=== PATIENT | female | born 1975 | race Caucasian/White ===

== ENCOUNTER 2018-07-03 11:17 | Outpatient (CLI) | payer OTHER ==
[2018-07-03] MEDS ORDERED: MONT10TA6 PO (13:11)
[2018-07-03] MEDS ORDERED: MULT-806 PO (13:11)
[2018-07-03] MEDS ORDERED: MULT1TAB60 PO (13:11)
[2018-07-03] MEDS ORDERED: MILK140C PO (13:11)
[2018-07-03] MEDS ORDERED: ASCO500T8 PO (13:11)
[2018-07-03] MEDS ORDERED: CHOL2000 PO (13:11)
[2018-07-03] MEDS ORDERED: CALC500T93 PO (13:11)
[2018-07-03] MEDS ORDERED: NORE1TAB11 PO (13:11)
[2018-07-03] MEDS ORDERED: LOSA100T14 PO (13:11)
[2018-07-03 13:40] LABS: MICROSCOPIC AUTO
[2018-07-03 13:41] LABS: CULTURE INDICATED? NO
[2018-07-03 13:43] LABS: MEAN CORPUSCULAR HEMOGLOBIN 32.2 pg (27.0-34.8); MEAN CORPUSCULAR HGB CONC 33.6 g/dL (32.4-35.8); MEAN CORPUSCULAR VOLUME 95.7 fL (80-100); MEAN PLATELET VOLUME 9.3 fL (7.4-10.4); PLATELET COUNT 311 x10^3/uL (130-400); RED BLOOD COUNT 4.59 x10^6/uL (3.82-5.3); RED CELL DISTRIBUTION WIDTH 12.5 % (9.6-15.2)
[2018-07-03 14:17] LABS: BASOPHILS # (AUTO) 0.07 x10^3/uL (0-0.1); BASOPHILS % (AUTO) 0 % (0-1); EOSINOPHILS # (AUTO) 0.07 x10^3/uL (0-0.4); EOSINOPHILS % (AUTO) 0 % (1-7); LYMPHOCYTES % (AUTO) 19 % (22-44); MD SCAN; MONOCYTES % (AUTO) 6 % (2-9); NEUTROPHILS # (AUTO) 13.59 x10^3/uL (1.8-6.8); NEUTROPHILS % (AUTO) 75 % (42-75)
[2018-07-12 14:22] LABS: BASOPHILS # (AUTO) 0.04 x10^3/uL (0-0.1); BASOPHILS % (AUTO) 0 % (0-1); EOSINOPHILS # (AUTO) 0.16 x10^3/uL (0-0.4); EOSINOPHILS % (AUTO) 1 % (1-7); LYMPHOCYTES % (AUTO) 32 % (22-44); MD NO; MEAN CORPUSCULAR HEMOGLOBIN 32.3 pg (27.0-34.8); MEAN CORPUSCULAR HGB CONC 33.6 g/dL (32.4-35.8); MEAN CORPUSCULAR VOLUME 96.3 fL (80-100); MEAN PLATELET VOLUME 8.6 fL (7.4-10.4); MONOCYTES # (AUTO) 1.06 x10^3/uL (0.2-0.8); MONOCYTES % (AUTO) 9 % (2-9); NEUTROPHILS # (AUTO) 6.74 x10^3/uL (1.8-6.8); NEUTROPHILS % (AUTO) 58 % (42-75); PLATELET COUNT 241 x10^3/uL (130-400); RED BLOOD COUNT 4.35 x10^6/uL (3.82-5.3); RED CELL DISTRIBUTION WIDTH 12.4 % (9.6-15.2)
== END 2018-07-03 23:59 | disposition home or self-care (01) ==
LOC: STAR 11:17
PROVIDERS: ATTEND Obstetrics & Gynecology Maternal & Fetal Medicine
DX: Z01.818 Encounter for other preprocedural examination (principal); N92.0 Excessive and frequent menstruation with regular cycle
CPT/HCPCS: 36415; 80053; 81001; 85025

== ENCOUNTER 2018-07-13 14:08 | Day surgery (SDC) | payer OTHER ==
[2018-07-03 12:54] LABS: ALBUMIN 3.9 g/dL (3.4-5.0); ANION GAP 12 mmol/L (5-15); CALCIUM 8.7 mg/dL (8.5-10.1); CHLORIDE 110 mmol/L (98-107)
[2018-07-03 12:59] LABS: ALANINE AMINOTRANSFERASE 36 U/L (12-78); ALKALINE PHOSPHATASE 83 U/L (45-117); BILIRUBIN,TOTAL 0.5 mg/dL (0.2-1.0); CREATININE 0.56 mg/dL (0.55-1.02); TOTAL PROTEIN 7.2 g/dL (6.4-8.2)
[~2018-07-13] VITALS: Ht 160 cm; Wt 116.6 kg
[~2018-07-13 14:08] MED LIST: ASCO500T8 PO; CALC500T93 PO; CHOL2000 PO; LOSA100T14 PO; MILK140C PO; MONT10TA6 PO; MULT-806 PO; MULT1TAB60 PO; NORE1TAB11 PO
[2018-07-13] MEDS ORDERED: LACTATED RINGERS 1,000 ML IV SCH (14:18)
[2018-07-13 14:38] VITALS: BP 154/72
[2018-07-13] MEDS ORDERED: NEOSPORIN OINT. PKT 1 PACKET ONE (14:47)
[2018-07-13] MEDS ORDERED: BUPIVACAINE/PF 0.25% ONE (14:47)
[2018-07-13] MEDS ORDERED: EPINEPHRINE 1 MG/ML, 1ML ONE (14:47)
[2018-07-13] MEDS ORDERED: SCOPOLAMINE PATCH, 1.5MG PATCH.TD72 TD ONE (15:00)
[2018-07-13] MEDS ORDERED: DIAZEPAM 5 MG TABLET PO ONE (15:00)
[2018-07-13] MEDS ORDERED: ACETAMINOPHEN 500 MG TABLET PO ONE (15:00)
[2018-07-13] MEDS ORDERED: MIDAZOLAM 1 MG/ML, 2ML ONE (16:04)
[2018-07-13] MEDS ORDERED: FENTANYL PF 250 MCG/5ML ONE (16:05)
[2018-07-13] MEDS ORDERED: ONDANSETRON 2MG/ML, 2ML IV PRN (16:30)
[2018-07-13] MEDS ORDERED: MEPERIDINE/PF 25MG/0.5ML IVPush PRN (16:30)
[2018-07-13] MEDS ORDERED: OXYcodone 5 MG/5 ML ORAL.SOL UDC PO PRN (16:30)
[2018-07-13] MEDS ORDERED: PROMETHAZINE 25 MG/ML, 1ML IM PRN (16:30)
[2018-07-13] MEDS ORDERED: PROMETHAZINE 25 MG/ML, 1ML IV PRN (16:30)
[2018-07-13] MEDS ORDERED: ONDANSETRON ODT 8 MG PO PRN (16:30)
[2018-07-13] MEDS ORDERED: FENTANYL PF 100 MCG/2ML IV PRN (16:30)
[2018-07-13] MEDS ORDERED: HYDROmorphone 2 MG/ML, 1ML IVPush PRN (16:30)
[2018-07-13] MEDS ORDERED: PROMETHAZINE 25 MG SUPP PR PRN (16:30)
[2018-07-13] MEDS ORDERED: CEFAZOLIN 1,000 MG ONE (17:03)
[2018-07-13] MEDS ORDERED: PROPOFOL 10 MG/ML, 20ML ONE (17:03)
[2018-07-13] MEDS ORDERED: SUCCINYLCHOLINE 20 MG/ML, 10ML ONE (17:03)
[2018-07-13] MEDS ORDERED: DEXAMETHASONE 4 MG/ML, 1ML ONE (17:03)
[2018-07-13] MEDS ORDERED: ONDANSETRON 2MG/ML, 2ML ONE ×2 (17:03→18:41)
[2018-07-13] MEDS ORDERED: GLYCOPYRROLATE 0.2MG/1ML, 5ML ONE (17:03)
[2018-07-13] MEDS ORDERED: ROCURONIUM 10MG/ML,5ML ONE (17:03)
[2018-07-13] MEDS ORDERED: NEOSTIGMINE 1 MG/ML, 10ML ONE (17:03)
[2018-07-13] MEDS ORDERED: SUGAMMADEX 200 MG/2 ML IVPush ONE (17:04)
[2018-07-13] MEDS ORDERED: FENTANYL PF 100 MCG/2ML ONE ×2 (17:56→18:45)
[2018-07-13] MEDS ORDERED: PROMETHAZINE 25 MG/ML, 1ML ONE (19:01)
== END 2018-07-13 21:15 | disposition home or self-care (01) ==
LOC: OR 14:08 → MERGE 16:00 → 4NOR 19:45 → OR 21:15
PROVIDERS: ATTEND Obstetrics & Gynecology Maternal & Fetal Medicine
DX: Z30.2 Encounter for sterilization (principal); N83.8 Other noninflammatory disorders of ovary, fallopian tube and broad ligament; I10 Essential (primary) hypertension; E66.01 Morbid (severe) obesity due to excess calories; Z79.899 Other long term (current) drug therapy; Z91.018 Allergy to other foods; Z88.2 Allergy status to sulfonamides; Z88.8 Allergy status to other drugs, medicaments and biological substances; Z98.890 Other specified postprocedural states; Z82.49 Family history of ischemic heart disease and other diseases of the circulatory system
CPT/HCPCS: 36415; 58563; 58670; 81025; 85025; 88305; J0171; J0330; J0690; J1100; J2250; J2405; J2550; J2704; J2710; J3010; J3490; J7120; 80053; G0378